=== PATIENT | male | born 1965 | race Caucasian/White ===

== ENCOUNTER 2018-06-03 13:29 | Emergency (ER) | payer BC, OTHER ==
[2018-06-03] MEDS ORDERED: Adacel (T-DAP) 0.5 ML VIAL ONE (13:50)
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
== END 2018-06-03 14:20 | disposition home or self-care (01) ==
LOC: SCSER 13:29
DX: S43.101A Unspecified dislocation of right acromioclavicular joint, initial encounter (principal); V87.8XXA Person injured in other specified noncollision transport accidents involving motor vehicle (traffic), initial encounter
CPT/HCPCS: 90471; 90715